=== PATIENT | female | born 1990 | race African-American/Black ===

== ENCOUNTER 2021-07-18 13:06 | Observation (INO) | payer MEDICAID ==
[~2021-07-18] VITALS: Ht 167.6 cm; Wt 119.3 kg
[2021-07-18] MEDS ORDERED: FERR325T6 PO (13:59)
[2021-07-18] MEDS ORDERED: PNV1TABL76 PO (13:59)
[2021-07-18] MEDS ORDERED: ASPI-1497 PO (13:59)
[2021-07-18] MEDS: LABETALOL HCL 100MG TABLET PO SCH (20:48)
[2021-07-18] MEDS ORDERED: BETAMETHASONE ACET/BETAMET 30 MG/5 ML VIAL IM SCH (21:00)
[2021-07-18 21:02] LABS: CLARITY URINE CLOUDY (CLEAR); COLOR URINE YELLOW (YELLOW); KETONES URINE 2+ (NEGATIVE); LEUKOCYTE ESTERASE URINE NEGATIVE (NEGATIVE); NITRITE URINE NEGATIVE (NEGATIVE); OCCULT BLOOD URINE NEGATIVE (NEGATIVE); PROTEIN URINE TRACE (NEGATIVE); SPECIFIC GRAVITY URINE 1.022 (1.005-1.030)
[2021-07-18 21:04] LABS: BASOPHILS % 0.6 % (0.0-2.0); EOSINOPHILS % 4.4 % (0.0-5.0); HEMATOCRIT. 37.5 % (36.0-48.0); HEMOGLOBIN. 12.6 g/dL (12.0-16.0); MEAN CORPUSCULAR HEMOGLOBIN 30.9 pg (28.0-32.0); MEAN CORPUSCULAR VOLUME 91.8 fL (81.0-99.0); MEAN PLATELET VOLUME 8.9 fl (7.4-10.4); MONOCYTES % 5.2 % (2.0-8.0); NEUTROPHILS % 66.8 % (40.0-76.0); PLATELET 281 x1000/uL (130-400); RED BLOOD CELL COUNT 4.09 mill/uL (4.2-5.4); RED CELL DISTRIBUTION WIDTH 15.4 % (11.6-14.6)
[2021-07-18 21:08] LABS: CHLORIDE 108 mEq/L (98-107)
[2021-07-18 21:24] LABS: D-DIMER 4.74 mg/L FEU (<0.50); PARTIAL THROMBOPLASTIN TIME 29.2 sec (23.4-31.0); PROTHROMBIN TIME 10.5 sec (9.6-11.0)
[2021-07-19] MEDS ORDERED: CITRIC ACID/SODIUM CITRATE SOLN 30ML UDC PO PRN ×2 (08:00→19:00)
[2021-07-19] MEDS: LABETALOL HCL 100MG TABLET PO SCH ×3 (08:31→21:55)
[2021-07-19] MEDS ORDERED: BETAMETHASONE ACET/BETAMET 30 MG/5 ML VIAL IM ONE (19:00)
[2021-07-20] MEDS: LABETALOL HCL 100MG TABLET PO SCH ×2 (01:12→06:23)
[2021-07-20] MEDS ORDERED: LABE100T5 PO (07:23)
[2021-07-20 08:11] LABS: HEMATOCRIT. 34.4 % (36.0-48.0); HEMOGLOBIN. 11.7 g/dL (12.0-16.0); MEAN CORPUSCULAR HEMOGLOBIN 31.3 pg (28.0-32.0); MEAN CORPUSCULAR VOLUME 91.9 fL (81.0-99.0); MEAN PLATELET VOLUME 9.2 fl (7.4-10.4); PLATELET 244 x1000/uL (130-400); RED BLOOD CELL COUNT 3.74 mill/uL (4.2-5.4); RED CELL DISTRIBUTION WIDTH 15.2 % (11.6-14.6)
[2021-07-20 08:17] LABS: CHLORIDE 109 mEq/L (98-107)
[2021-07-20 08:30] LABS: D-DIMER 3.75 mg/L FEU (<0.50); PARTIAL THROMBOPLASTIN TIME 28.2 sec (23.4-31.0); PROTHROMBIN TIME 10.4 sec (9.6-11.0)
[2021-07-20 10:40] LABS: PLATELET ESTIMATE NORMAL
== END 2021-07-20 12:30 | disposition home or self-care (01) ==
LOC: INTOOBSV 13:06 → OBSVTOIN 13:06 → 8 EST LDRP 13:06 → 8EST 07-19 11:58 → 8 EST A/PP 07-19 11:59
PROVIDERS: ADMIT Obstetrics & Gynecology; ATTEND Obstetrics & Gynecology
DX: O16.3 Unspecified maternal hypertension, third trimester (principal); Z3A.32 32 weeks gestation of pregnancy
CPT/HCPCS: 36415; 59025; 76805; 76810; 76815; 76818; 80053; 81003; 82731; 84550; 85025; 85379; 85384; 85610; 85730; 96372; G0378; J0702; 99281